=== PATIENT | male | born 1975 | race Caucasian/White ===

== ENCOUNTER 2020-08-17 12:25 | Inpatient (IN) | payer OTHER ==
[~2020-08-17] VITALS: Ht 188 cm; Wt 87.3 kg
--- NOTE | ~2020-08-17 | PROC ---
[address] [address] PROCEDURE REPORT Name: TERESA PONCE Room: [address] IN M.R.#: [id number] Admission: 08/17/20 Attend Phys: Kelly Chew MD Discharge: 08/19/20 Date of : 71 Report #: [id number] THIS REPORT FOR: //name// cc: FAM - No family physician/PCP FAM - No family physician/PCP ~ For GI report, please see the Provation report in Perceptive 7 content. By: [facility] HospitalMedical Records Staff [facility] /MARK
--- NOTE | ~2020-08-17 | CON ---
[address] [address] CONSULTATION Name: TERESA PONCE Room: [address] IN M.R.#: [id number] Admission: 08/17/20 Attend Phys: Kelly Chew MD Discharge: Date of : 71 Report #: [id number] THIS REPORT FOR: //name// cc: MADHAVI - No family physician/PCP MADHAVI - No family physician/PCP ~ DATE OF SERVICE: 08/18/2020 The patient currently does not have a PCP. Please note at the time of this dictation, the patient was seen and physically examined by myself. REASON FOR CONSULTATION: Rectal bleeding. HISTORY OF PRESENT ILLNESS: This is a 45-year-old male who presented to the Emergency Room with 3 days of bright red and clots, bleeding that he was having 3-4 episodes a day. He would notice leakage upon standing after he has been sitting for a while of blood into his underwear, more so when he would have a bowel movement. The patient states that this started on Sunday, it progressively got worse until his day of admission. Overnight, he states it has been very minimal if any at all since that time. This was the worst that it has ever been he states. In talking to him and his he states that over this past year, he has been having this occurs at least once a month, which has increased in frequency over the last 5 years, prior to this year he states he would have it probably a couple of times a year. It was very self-limiting. They always thought it was hemorrhoids and it would go away; however, this year it has been occurring on a monthly basis, lasting a day or two, but this has been the longest that it has lasted, prompting him to seek medical intervention. The patient has never had a colonoscopy done before either. The patient states he denies any upper GI symptoms. No abdominal pain, nausea or vomiting. He does have a little bit of bloating that he experienced with this, but no discomfort. He states his bowels move daily, soft and formed with no evidence of any bleeding except during his episodes when they occur. He denies any issues with any constipation. ALLERGIES: No known drug allergies. MEDICATIONS FROM HOME: None. PAST MEDICAL HISTORY: Negative. PAST SURGICAL HISTORY: He had hernia repair on the left side. FAMILY HISTORY: [place] [address] CONSULTATION Name: TERESA PONCE Room: [address]#: [id number] Admission: 08/17/20 Attend Phys: Kelly Chew MD Discharge: Date of : 71 Report #: [id number] SOCIAL HISTORY: , recently moved to the area about 2 months ago and has not established with a PCP. Minimal alcohol. Denies any tobacco or illegal drug use. REVIEW OF SYSTEMS: Twelve-point review of systems is essentially negative except what is mentioned in the HPI. PHYSICAL EXAMINATION: VITAL SIGNS: Temperature 36.7, pulse 86, respirations 19, blood pressure 116/76. HEART: Regular rate and rhythm. LUNGS: Clear. ABDOMEN: Soft, positive bowel sounds in all 4 quadrants with no masses or tenderness noted. RADIOLOGICAL DATA: CT angio showed extensive sigmoid diverticulosis with suggesting a proximal sigmoid diverticular bleed, hepatosplenomegaly with diffuse hepatic steatosis. IMPRESSION: 1. Rectal bleeding, improving. 2. Abnormal CT angio suggestive of diverticular bleed. 3. Hepatosplenomegaly. 4. Hepatic steatosis. 5. Family history of breast cancer in mother PLAN: 1. Colonoscopy tomorrow with Dr. Morales with [place]. 2. Ultrasound of the abdomen to evaluate his liver more closely. 3. Further recommendations to be made once the procedure has been performed. Thank you for allowing us to participate in this patient's care. Please do not hesitate to call with any questions in regard to this consult. By: 1105 1143Con Moss MD /nt
[2020-08-17 12:31] VITALS: BP 132/85
[2020-08-17 12:44] LABS: URINE BLOOD NEGATIVE (Negative); URINE CLARITY CLEAR; URINE COLOR YELLOW; URINE GLUCOSE-RANDOM NEGATIVE (Negative); URINE KETONES NEGATIVE (Negative); URINE LEUKOCYTES-REFLEX NEGATIVE (Negative); URINE NITRITE-REFLEX NEGATIVE (Negative); URINE PROTEIN 1+ (Negative); URINE SPECIFIC GRAVITY >= 1.030 (1.005-1.030)
[2020-08-17 12:48] LABS: ICTOTEST (BILI CONFIRMATORY) Negative (Negative); URINE BILIRUBIN 1+ (Negative)
[2020-08-17 12:54] LABS: ABSOLUTE BASOPHILS 0.1 thou/uL (0.0-0.2); ABSOLUTE EOSINOPHILS 0.1 thou/uL (0.0-0.7); ABSOLUTE LYMPHOCYTES 1.2 thou/uL (0.8-5.3); ABSOLUTE MONOCYTES 0.4 thou/uL (0.0-1.2); ABSOLUTE NEUTROPHILS 3.6 thou/uL (1.6-8.1); BASOPHILS 1.3 %; EOSINOPHILS 2.7 %; HEMATOCRIT 46.7 % (42.0-52.0); HEMOGLOBIN 16.1 gm/dL (14.0-18.0); LYMPHOCYTES 21.3 %; MCH 29.9 pg (26.0-34.0); MCHC 34.5 g/dL (28.0-37.0); MCV 86.6 fL (80.0-100.0); MONOCYTES 7.7 %; MPV 8.7 fl. (7.2-11.1); NUCLEATED RBCS 0 /100WBC; PLATELET COUNT* 186 thou/uL (150-400); RBC 5.39 mil/uL (4.50-6.00); RDW-CV 13.3 % (10.5-14.5); WBC 5.4 thou/uL (4.0-11.0)
[2020-08-17 13:02] LABS: CALCIUM 8.7 mg/dL (8.5-10.1); POTASSIUM 3.6 mmol/L (3.5-5.1)
[2020-08-17 13:03] LABS: INR 1.1; PROTIME 11.4 Seconds (9.20-11.50)
[2020-08-17 13:06] LABS: ALBUMIN 4.2 g/dL (3.4-5.0); TOTAL PROTEIN 8.1 g/dL (6.4-8.2)
--- NOTE | 2020-08-17 14:59 | EKG ---
[place] [address] ELECTROCARDIOGRAM REPORT Name: BRADEN PONCE Room: [facility]#: [id number] Admission: 08/17/20 Attend Phys: Discharge: Date of : 71 Date of Service: 08/17/20 1246 Report #: [id number] THIS REPORT FOR: //name// [facility] ED Test Date: 2020-08-17 Test Time: 12:46:15 Pat Name: BRADEN PONCE Department: Room: Gender: Drop Count Associate: [facility] : 1975 Requested By: Aj Vargas Order Number: [id number] MD: Braden Byrnes Measurements Intervals [place] Rate: 86 P: 39 [place]: 151 QRS: 57 QRSD: 95 T: 41 QT: 380 QTc: 455 Interpretive Statements Sinus rhythm RSR' in V1 or V2, probably normal variant No previous ECG available for comparison Electronically Signed On 08-17-2020 14:59:37 [employer]OND [employer] by Braden Byrnes [email or web address] <ELECTRONICALLY SIGNED> By: Braden Byrnes MD, [facility] 08/17/20 1459 1246 1246 Braden Byrnes MD, FAC /EPI
[2020-08-17 19:51] VITALS: BP 119/68
[2020-08-17 20:25] LABS: HEMOGLOBIN 14.9 gm/dL (14.0-18.0); MCH 30.2 pg (26.0-34.0); MCHC 34.7 g/dL (28.0-37.0); MCV 87.1 fL (80.0-100.0); MPV 8.5 fl. (7.2-11.1); RBC 4.94 mil/uL (4.50-6.00); RDW-CV 13.2 % (10.5-14.5)
[2020-08-17 21:05] VITALS: BP 118/70
[2020-08-17 21:15] VITALS: BP 119/66
[2020-08-18] VITALS: BP 111/65
[2020-08-18 04:00] VITALS: BP 118/77
[2020-08-18 04:43] LABS: HEMATOCRIT 41.7 % (42.0-52.0); HEMOGLOBIN 14.4 gm/dL (14.0-18.0); MCH 29.8 pg (26.0-34.0); MCHC 34.4 g/dL (28.0-37.0); MCV 86.4 fL (80.0-100.0); MPV 8.8 fl. (7.2-11.1); RBC 4.83 mil/uL (4.50-6.00); RDW-CV 13.3 % (10.5-14.5); WBC 4.2 thou/uL (4.0-11.0)
[2020-08-18 05:23] LABS: ALBUMIN 3.6 g/dL (3.4-5.0); CALCIUM 8.5 mg/dL (8.5-10.1); CREATININE 0.9 mg/dL (0.6-1.3); MAGNESIUM 2.1 mg/dL (1.8-2.4); POTASSIUM 3.7 mmol/L (3.5-5.1); TOTAL BILIRUBIN 0.9 mg/dL (<0.1-1.0); TOTAL PROTEIN 7.2 g/dL (6.4-8.2)
[2020-08-18 08:00] VITALS: BP 116/76
[2020-08-18 12:00] VITALS: BP 130/73
[2020-08-18 16:00] VITALS: BP 122/72
[2020-08-18 20:30] VITALS: BP 105/72
[2020-08-19] VITALS: BP 119/79
[2020-08-19 04:00] VITALS: BP 112/67
[2020-08-19 04:58] LABS: HEMATOCRIT 41.3 % (42.0-52.0); HEMOGLOBIN 14.5 gm/dL (14.0-18.0); MCH 30.5 pg (26.0-34.0); MCHC 35.1 g/dL (28.0-37.0); MCV 86.8 fL (80.0-100.0); MPV 8.8 fl. (7.2-11.1); RBC 4.75 mil/uL (4.50-6.00); RDW-CV 13.3 % (10.5-14.5); WBC 4.6 thou/uL (4.0-11.0)
[2020-08-19 05:16] LABS: ALBUMIN 3.6 g/dL (3.4-5.0); CALCIUM 8.2 mg/dL (8.5-10.1); POTASSIUM 3.6 mmol/L (3.5-5.1); TOTAL BILIRUBIN 1.1 mg/dL (<0.1-1.0); TOTAL PROTEIN 6.9 g/dL (6.4-8.2)
[2020-08-19 08:00] VITALS: BP 132/78
[2020-08-19] MEDS ORDERED: AUGMENTIN 875-1 EACH PO (09:46)
[2020-08-19 16:04] VITALS: BP 132/78
--- NOTE | 2020-08-23 17:06 | PATH ---
[address] [address] PATHOLOGY RPT PROCEDURE Name: BRADEN WEST Room: [address] IN M.R.#: [id number] Admission: 08/17/20 Date of : 71 Discharge: 08/19/20 Report #: [id number] Path Case #: [id number] [facility] Accession Number: [id number] . 01 Material submitted: . colon - PROXIMAL TRANSVERSE COLON POLYP. Modifiers: proximal, transverse . 01 Clinician provided ICD-10: K57.33 . 01 Clinical history: . GI BLEED, DIVERTICULITIS . 02 Diagnosis: Proximal transverse colon polyp: - Hyperplastic polyp. (BERTO:carlo; 08/23/2020) [facility] 08/23/2020 1548 Local . 02 Electronically signed: . Ben Villafana MD, Pathologist NPI- [id number] . 01 Gross description: . Received in formalin labeled "Braden West, proximal transverse colon polyp" are 2 fragments of pineda-brown soft tissue measuring in aggregate 0.5 x 0.3 x 0.1 cm. The specimen is submitted entirely in A1. ([place]; 08/21/2020) [facility] 08/21/2020 0947 Local . 02 Pathologist provided ICD-10: K63.5 . 02 CPT . 412998 Specimen Comment: A courtesy copy of this report has been sent to [phone], [phone] Specimen Comment: [phone] Specimen Comment: Report sent to / DR CHA Performed at: [address], [place] [id number] MD Castro Brooks MD Phone: [phone] Performed at: 02 [facility] [address], [place], [place] [id number] MD Ben Villafana MD Phone: [phone]
== END 2020-08-19 16:30 | disposition home or self-care (01) | DRG 379 ==
LOC: M.ERS 12:25 → M.TBA-ER 15:38 → M.2W 15:38
PROVIDERS: Family Medicine; ADMIT Internal Medicine; ATTEND Internal Medicine
DX: K57.33 Diverticulitis of large intestine without perforation or abscess with bleeding (principal); K76.0 Fatty (change of) liver, not elsewhere classified; R16.2 Hepatomegaly with splenomegaly, not elsewhere classified; K64.4 Residual hemorrhoidal skin tags; D12.3 Benign neoplasm of transverse colon; K64.8 Other hemorrhoids; Z20.828 Contact with and (suspected) exposure to other viral communicable diseases